=== PATIENT | female | born 1975 | race Caucasian/White ===

== ENCOUNTER → 2019-06-02 | Outpatient (CLI) | payer OTHER | END | disposition home or self-care (01) | LOC: PRENATAL 06-01 16:00 | DX: Z36.0 Encounter for antenatal screening for chromosomal anomalies (principal); O09.519 Supervision of elderly primigravida, unspecified trimester; O36.80X0 Pregnancy with inconclusive fetal viability, not applicable or unspecified; Z3A.14 14 weeks gestation of pregnancy ==

== ENCOUNTER → 2019-07-12 | Outpatient (CLI) | payer OTHER | END | disposition home or self-care (01) | LOC: PRENATAL 08:00 | DX: O35.3XX0 Maternal care for (suspected) damage to fetus from viral disease in mother, not applicable or unspecified (principal); O09.512 Supervision of elderly primigravida, second trimester ==

== ENCOUNTER → 2019-09-22 | Outpatient (CLI) | payer OTHER | END | disposition home or self-care (01) | LOC: PRENATAL 10:30 | DX: O26.843 Uterine size-date discrepancy, third trimester (principal); O99.89 Other specified diseases and conditions complicating pregnancy, childbirth and the puerperium; O09.513 Supervision of elderly primigravida, third trimester; Z36.89 Encounter for other specified antenatal screening ==